=== PATIENT | female | born 1985 | race Caucasian/White ===

== ENCOUNTER 2024-08-06 14:36 | Emergency (ER) | payer BC ==
[2024-08-06 15:16] LABS: APPEARANCE,URINE CLEAR; BILIRUBIN,URINE NEGATIVE (NEGATIVE); COLOR,URINE YELLOW; GLUCOSE,URINE NEGATIVE (NEGATIVE); KETONES,URINE NEGATIVE (NEGATIVE); LEUKOCYTE ESTERASE,URINE SMALL (NEGATIVE); NITRITE,URINE NEGATIVE (NEGATIVE); OCCULT BLOOD,URINE NEGATIVE (NEGATIVE); PROTEIN,URINE NEGATIVE (NEGATIVE); UROBILINOGEN,URINE 0.2 EU/dL (<2.0)
[2024-08-06 15:37] LABS: BACTERIA,URINE 2+ (NEGATIVE); EPITHELIAL CELLS,URINE FEW (NONE-FEW); RBC,URINE 0-1 (0-2/HPF)
[2024-08-06 15:38] LABS: MUCUS,URINE LIGHT (NONE-MOD)
[2024-08-06] MEDS: Lidocaine 4% 1 each Patch TOP STA (17:51)
[2024-08-06] MEDS: Ketorolac 30 MG/ML SDV IM ONE (17:51)
[2024-08-06 18:07] VITALS: BP 110/72; PULSE 68
== END 2024-08-06 18:07 | disposition home or self-care (01) ==
LOC: MW.ED 14:36
DX: S39.012A Strain of muscle, fascia and tendon of lower back, initial encounter (principal); Z75.8 Other problems related to medical facilities and other health care; X50.1XXA Overexertion from prolonged static or awkward postures, initial encounter
CPT/HCPCS: 81001; 81025; 87086; 96372; 99283; A9270; J1885; 99284